=== PATIENT | female | born 1995 | race Caucasian/White ===

== ENCOUNTER 2017-04-27 16:31 | Emergency (ER) | payer MEDICAID ==
[~2017-04-27] VITALS: Ht 162.6 cm; Wt 57.1 kg
[2017-04-27 19:08] VITALS: BP 105/67
== END 2017-04-27 19:08 | disposition home or self-care (01) ==
LOC: ED 16:31
DX: S39.012A Strain of muscle, fascia and tendon of lower back, initial encounter (principal); X58.XXXA Exposure to other specified factors, initial encounter; Y93.89 Activity, other specified; Y99.8 Other external cause status; Y92.89 Other specified places as the place of occurrence of the external cause
CPT/HCPCS: J1885

== ENCOUNTER 2017-05-11 13:37 | Emergency (ER) | payer MEDICAID ==
[2017-05-11 17:54] VITALS: BP 105/74
== END 2017-05-11 17:54 | disposition home or self-care (01) ==
LOC: ED 13:37
DX: M62.830 Muscle spasm of back (principal)
CPT/HCPCS: 20552; J2001